=== PATIENT | female | born 1965 | race Caucasian/White ===

== ENCOUNTER → 2020-12-01 | Outpatient (REF) ==
[~2020-12-01] MED LIST: AUGMENTIN875TAB PO; FLONASE NASAL50 MCG; KEFLEX500 MG PO; MEDDOSEPAK PO; ZITHROMAX500 MG PO
== END | disposition home or self-care (01) | DRG 951 ==
LOC: LAB 10:23
PROVIDERS: ATTEND Nurse Practitioner Family
DX: Z20.822 Contact with and (suspected) exposure to COVID-19 (principal)